=== PATIENT | female | born 1965 | race Caucasian/White ===

== ENCOUNTER 2022-11-30 10:59 | Outpatient (OUT) | payer OTHER, SELFPAY | END 2022-11-30 11:00 | disposition home or self-care (01) | LOC: SLEEP 11:00 | PROVIDERS: PCP Nurse Practitioner Family; Visit Provider Nurse Practitioner Family | DX: G47.33 Obstructive sleep apnea (adult) (pediatric) (principal); G25.81 Restless legs syndrome | CPT/HCPCS: 95806 ==